=== PATIENT | female | born 1995 | race Caucasian/White ===

== ENCOUNTER 2016-08-09 20:15 | Emergency (ER) | payer BC, OTHER ==
[2016-08-09 20:31] VITALS: BP 140/92
[2016-08-09] MEDS ORDERED: predniSONE TAB* 20 MG PO ONE (20:51)
[2016-08-09] MEDS ORDERED: HYDROcodone/ACETAMIN 5-325 MG* 1 TAB PO ONE (20:51)
--- NOTE | 2016-08-09 20:56 | UC ---
Angelic Matthew Alok, scribed for Hugo Zapata MD on 08/09/16 at 2045 . Back Pain HPI - HPI Summary HPI Summary: 21F presents to the [facility] with lower back pain since 07/29/16. Pt states that on 07/29/16 she stepped incorrectly while running, resulting her her back pain. Pt was rx prednisone and cyclobenzaprine on 07/30/16, which began to improve her symptoms until two days ago where she strained it yet again lifting hay miquel. Pt states that her lower back pain radiates to the buttocks. Pt states her pain worsens with movement or standing. Pt has been taking ibuprofen for pain though not today. Pt notes lower extremity weakness. Pt denies numbness or incontinence. - History of Current Complaint Chief Complaint: UCBackPain Stated Complaint: LOWER BACK PAIN Time Seen by Provider: 08/09/16 20:36 Hx Obtained From: Patient Hx Last Menstrual Period: 12/21/12 Onset/Duration: Lasting Weeks, Still Present, Worse Since - 2 days ago Timing: Constant Severity Initially: Moderate Severity Currently: Moderate Back Pain: Is Discrete @ - lower back, Radiates To - Buttocks Aggravating: Movement, Lifting, Walking Alleviating: Nothing Associated Signs And Symptoms: Positive: Weakness. Negative: Fever, Numbness, Bladder Incontinence, Bowel Incontinence - Allergies/Home Medications Allergies/Adverse Reactions: Allergies Allergy/AdvReac Type Severity Reaction Status Date / Time Sulfa Drugs Allergy Hives Verified 08/09/16 20:31 PMH/Surg Hx/FS Hx/Imm Hx - Surgical History Surgical History: None - Family History Known Family History: Positive: Diabetes - Social History Occupation: Student Substance Use Type: None Review of Systems Constitutional: Negative Gastrointestinal: Negative Motor: Weakness Musculoskeletal: Other: - lower back pain All Other Systems Reviewed And Are Negative: Yes Physical Exam Triage Information Reviewed: Yes Appearance: Well-Appearing, No Pain Distress Vital Signs: Initial Vital Signs Temp 99.2 F 08/09/16 20:31 Pulse 116 08/09/16 20:31 Resp 16 08/09/16 20:31 BP 140/92 08/09/16 20:31 Pulse Ox 97 08/09/16 20:31 Vital Signs Reviewed: Yes Eyes: Positive: Other: - EOMI, MARIA M ENT Exam: Normal Neck: Positive: Supple, Nontender Respiratory: Positive: Lungs clear, Normal breath sounds Cardiovascular: Positive: RRR Abdomen Description: Positive: Nontender, Soft Bowel Sounds: Positive: Present Musculoskeletal: Positive: Other: - Tenderness at the lower back L5 to the buttocks. Full strength in both her legs. No sensation deficits Neurological Exam: Normal Neurological: Positive: Other: - A&Ox3, Sensory/Motor intact Psychological: Positive: Other: - affect/mood appropriate Skin: Positive: Other - warm, dry, color reflects adequate perfusion Back Pain Course/Dx - Course Course Of Treatment: Pt medications reviewed this visit. No neurologic deficit on exam. - Differential Dx/Diagnosis Provider Diagnoses: Low back pain with radiculopathy Discharge - Discharge Plan Condition: Stable Disposition: HOME Prescriptions: oxyCODONE/Acetamin 5/325 MG* [Percocet 5/325 TAB*] 1 tab PO Q4H PRN #15 tab MDD 6 PRN Reason: Pain predniSONE TAB* [Deltasone TAB*] 40 mg PO DAILY #8 tab Patient Education Materials: Acute Low Back Pain (ED), Lumbar Radiculopathy (ED ) Additional Instructions: FOLLOW UP WITH YOUR DOCTOR. RETURN TO THE EMERGENCY DEPARTMENT FOR ANY WORSENING OF YOUR CONDITION; PAIN, WEAKNESS, NUMBNESS, DIFFICULTY CONTROLLING BOWEL OR BLADDER OR QUESTIONS OR CONCERNS. The documentation as recorded by the Angelic juan Alok accurately reflects the service I personally performed and the decisions made by me, Hugo Zapata MD.
== END 2016-08-09 21:07 | disposition home or self-care (01) ==
LOC: UCEAST 20:15
DX: M54.16 Radiculopathy, lumbar region (principal); Z88.2 Allergy status to sulfonamides
CPT/HCPCS: 99202; G0463; J7512